=== PATIENT | male | born 1995 | race Two or more races ===

== ENCOUNTER 2017-07-25 23:28 | Emergency (ER) | payer OTHER ==
--- NOTE | 2017-07-25 23:36 | EDPHY ---
H & P Stated Complaint: dizzy started today HPI/ROS: HPI CHIEF COMPLAINT: Anxiety HISTORY OF PRESENT ILLNESS: This patient 22-year-old male, otherwise healthy no significant medical history presents emergency room stating that he feels anxious. Patient reports lightheadedness. Patient states that he thinks he may be getting kicked out of [facility] as he has been under enrolled in [employer]. He is from [place]. He is very concerned that he may be kicked out of college. This caused him anxiety decided come the emergency room. Upon arrival here he appears well nontoxic in no acute distress. He is not having any chest pain or shortness of breath. He appears well. Vital signs are stable. I have offered him some Benadryl however at this time he has declined. Past Medical History: Denies medical history Past Surgical History: Denies surgical history Social History: Denies daily use drugs alcohol tobacco products. [employer] student. Family History: Noncontributory ROS REVIEW OF SYSTEMS: A comprehensive 10 point review of systems is otherwise negative aside from elements mentioned in the history of present illness. Exam Constitutional appears well nontoxic in no acute distress triage nursing summary reviewed, vital signs reviewed, awake/alert. Eyes normal conjunctivae and sclera, EOMI, PERRLA. HENT normal inspection, atraumatic, moist mucus membranes, no epistaxis, neck supple/ no meningismus, no raccoon eyes. Respiratory clear to auscultation bilaterally, normal breath sounds, no respiratory distress, no wheezing. Cardiovascular rate normal, regular rhythm, no murmur, no edema, distal pulses normal. Gastrointestinal soft, non-tender, no rebound, no guarding, normal bowel sounds, no distension, no pulsatile mass. Genitourinary no CVA tenderness. Musculoskeletal no midline vertebral tenderness, full range of motion, no calf swelling, no tenderness of extremities, no meningismus, good pulses, neurovascularly intact. Skin pink, warm, & dry, no rash, skin atraumatic. Neurologic awake, alert and oriented x 3, AAOx3, moves all 4 extremities equally, motor intact, sensory intact, CN II-XII intact, normal cerebellar, normal vision, normal speech. Psychiatric somewhat anxious, normal mood/affect. Heme/Lymph/Immune no lymphadenopathy. Differential Diagnosis: Includes but is not limited to in a particular order acute anxiety, lightheadedness, panic attack Medical Decision Making: Plan for this patient Benadryl p. o. if he would like. Then he can be discharged from the emergency room. Return precautions discussed. Source: Patient - Personal History Current Tetanus/Diphtheria Vaccine: No Current Tetanus Diphtheria and Acellular Pertussis (TDAP): No - Medical/Surgical History Hx Asthma: No Hx Chronic Respiratory Disease: No Hx Diabetes: No Hx Cardiac Disease: No Hx Renal Disease: No Hx Cirrhosis: No Hx Alcoholism: No Hx HIV/AIDS: No Hx Splenectomy or Spleen Trauma: No Other PMH: DENIES - Social History Smoking Status: Never smoked Constitutional: Initial Vital Signs Temperature (C) 37.0 C 07/25/17 23:30 Heart Rate 71 07/25/17 23:30 Respiratory Rate 16 07/25/17 23:30 Blood Pressure 121/72 H 07/25/17 23:30 O2 Sat (%) 97 07/25/17 23:30 O2 Delivery Mode Room Air Allergies/Adverse Reactions: egg Allergy (Verified 07/25/17 23:33) Home Medications: Medication Instructions Recorded NK [No Known Home Meds] 06/09/16 Departure - Departure Disposition: Home, Routine, Self-Care Clinical Impression: Anxiety Condition: Good Instructions: Anxiety (ED) Additional Instructions: 1. Return if worsening symptoms questions or concerns. 2. Calm slow breathing. Referrals: NONE *PRIMARY CARE P,. [Primary Care Provider] - As per Instructions
[2017-07-25 23:43] VITALS: RESP 18
[2017-07-26 00:03] VITALS: BP 117/74; PULSE 78; TEMP 98.1; O2SAT 95
== END 2017-07-26 00:10 | disposition home or self-care (01) ==
DX: F41.9 Anxiety disorder, unspecified (principal)